=== PATIENT | male | born 1990 | race African-American/Black ===

== ENCOUNTER 2017-06-13 18:15 | Emergency (ER) | payer OTHER ==
[~2017-06-13] VITALS: Ht 195.6 cm; Wt 77.1 kg
[2017-06-13 18:37] VITALS: BP 132/84
== END 2017-06-13 20:56 | disposition home or self-care (01) ==
LOC: ER 18:15
DX: J02.9 Acute pharyngitis, unspecified (principal); F17.210 Nicotine dependence, cigarettes, uncomplicated; R52 Pain, unspecified